=== PATIENT | male | born 1940 | race Caucasian/White ===

== ENCOUNTER → 2016-10-23 | Outpatient (CLI) | payer MEDICARE ==
[~2016-10-23] MED LIST: ASPI-515 PO; CEPH-376 PO; CHOL2000 PO; CINN500C2 PO; CIPR500T87 PO; DABI150C PO; FLUC200T4 PO; GABA300C10 PO; INSU100V8 SQ; METF500T4 PO; MULT-717 PO; TAMS-11 PO; TRAM-28 PO; Will bring list DOS
== END | disposition home or self-care (01) ==
LOC: RAD 12:28
PROVIDERS: ATTEND Internal Medicine
DX: J90 Pleural effusion, not elsewhere classified (principal); J98.11 Atelectasis
CPT/HCPCS: 71020; 71250

== ENCOUNTER → 2017-02-05 | Outpatient (CLI) | payer MEDICARE | END | disposition home or self-care (01) | LOC: WOUND 12:52 | PROVIDERS: ATTEND Physician Assistant | DX: E11.622 Type 2 diabetes mellitus with other skin ulcer (principal); L97.821 Non-pressure chronic ulcer of other part of left lower leg limited to breakdown of skin; E11.40 Type 2 diabetes mellitus with diabetic neuropathy, unspecified; I50.33 Acute on chronic diastolic (congestive) heart failure; I48.2 Chronic atrial fibrillation; Z85.53 Personal history of malignant neoplasm of renal pelvis; Z98.49 Cataract extraction status, unspecified eye; Z96.652 Presence of left artificial knee joint | CPT/HCPCS: 97597; G0463; WOU0463 ==

== ENCOUNTER → 2017-02-11 | Outpatient (CLI) | payer MEDICARE ==
[~2017-02-11] MED LIST changes: +REGADENOSON 0.4 MG/5 ML SYRINGE ONE
[2017-02-11 12:35] LABS: ASPARTATE AMINO TRANSFERASE 12 U/L (15-37); BLOOD UREA NITROGEN 25 mg/dL (7-18)
== END | disposition home or self-care (01) ==
LOC: CVU 09:31
PROVIDERS: ATTEND Internal Medicine Cardiovascular Disease
DX: I50.33 Acute on chronic diastolic (congestive) heart failure (principal); I48.2 Chronic atrial fibrillation; T81.30XA Disruption of wound, unspecified, initial encounter; R60.9 Edema, unspecified; I49.3 Ventricular premature depolarization
CPT/HCPCS: 36415; 78452; 80053; 80061; 83036; 84436; 84481; 85025; 93017; 93306; A9502; J2785

== ENCOUNTER → 2017-02-11 | Outpatient (CLI) | payer MEDICARE ==
[~2017-02-11] MED LIST changes: -REGADENOSON 0.4 MG/5 ML SYRINGE ONE
== END | disposition home or self-care (01) ==
LOC: WOUND 13:36
PROVIDERS: ATTEND Podiatrist Foot & Ankle Surgery
DX: E11.622 Type 2 diabetes mellitus with other skin ulcer (principal); L97.821 Non-pressure chronic ulcer of other part of left lower leg limited to breakdown of skin; E11.40 Type 2 diabetes mellitus with diabetic neuropathy, unspecified; G89.29 Other chronic pain; I48.2 Chronic atrial fibrillation; Z85.53 Personal history of malignant neoplasm of renal pelvis; I50.33 Acute on chronic diastolic (congestive) heart failure; Z96.652 Presence of left artificial knee joint
CPT/HCPCS: 97597

== ENCOUNTER → 2017-02-18 | Outpatient (CLI) | payer MEDICARE | END | disposition home or self-care (01) | LOC: WOUND 14:00 | PROVIDERS: ATTEND Podiatrist Foot & Ankle Surgery | DX: E11.621 Type 2 diabetes mellitus with foot ulcer (principal); L97.821 Non-pressure chronic ulcer of other part of left lower leg limited to breakdown of skin; E11.40 Type 2 diabetes mellitus with diabetic neuropathy, unspecified; I48.2 Chronic atrial fibrillation; I50.33 Acute on chronic diastolic (congestive) heart failure; Z98.49 Cataract extraction status, unspecified eye; Z85.53 Personal history of malignant neoplasm of renal pelvis; Z96.652 Presence of left artificial knee joint | CPT/HCPCS: 97597 ==

== ENCOUNTER → 2017-02-25 | Outpatient (CLI) | payer MEDICARE | END | disposition home or self-care (01) | LOC: WOUND 14:12 | PROVIDERS: ATTEND Podiatrist Foot & Ankle Surgery | DX: E11.622 Type 2 diabetes mellitus with other skin ulcer (principal); L97.821 Non-pressure chronic ulcer of other part of left lower leg limited to breakdown of skin; E11.40 Type 2 diabetes mellitus with diabetic neuropathy, unspecified; I48.2 Chronic atrial fibrillation; I50.33 Acute on chronic diastolic (congestive) heart failure; G89.29 Other chronic pain; Z96.652 Presence of left artificial knee joint; Z85.53 Personal history of malignant neoplasm of renal pelvis | CPT/HCPCS: 97597 ==

== ENCOUNTER → 2017-02-25 | Outpatient (CLI) | payer MEDICARE | END | disposition home or self-care (01) | LOC: CVU 11:34 | PROVIDERS: ATTEND Internal Medicine Cardiovascular Disease | DX: I70.203 Unspecified atherosclerosis of native arteries of extremities, bilateral legs (principal); I48.2 Chronic atrial fibrillation; I50.33 Acute on chronic diastolic (congestive) heart failure; T81.30XA Disruption of wound, unspecified, initial encounter; L97.329 Non-pressure chronic ulcer of left ankle with unspecified severity; E11.622 Type 2 diabetes mellitus with other skin ulcer; Z99.3 Dependence on wheelchair | CPT/HCPCS: 93922; 93925; 93970 ==

== ENCOUNTER → 2017-03-04 | Outpatient (CLI) | payer MEDICARE | END | disposition home or self-care (01) | LOC: WOUND 13:57 | PROVIDERS: ATTEND Podiatrist Foot & Ankle Surgery | DX: E11.622 Type 2 diabetes mellitus with other skin ulcer (principal); L97.821 Non-pressure chronic ulcer of other part of left lower leg limited to breakdown of skin; E11.40 Type 2 diabetes mellitus with diabetic neuropathy, unspecified; I48.2 Chronic atrial fibrillation; Z85.53 Personal history of malignant neoplasm of renal pelvis | CPT/HCPCS: 97597 ==

== ENCOUNTER → 2017-03-11 | Outpatient (CLI) | payer MEDICARE ==
[~2017-03-11] MED LIST changes: -TRAM-28 PO; +TRAM-47 PO
== END | disposition home or self-care (01) ==
LOC: WOUND 13:48
PROVIDERS: ATTEND Podiatrist Foot & Ankle Surgery
DX: E11.622 Type 2 diabetes mellitus with other skin ulcer (principal); L97.821 Non-pressure chronic ulcer of other part of left lower leg limited to breakdown of skin; I48.2 Chronic atrial fibrillation; E11.40 Type 2 diabetes mellitus with diabetic neuropathy, unspecified; Z85.53 Personal history of malignant neoplasm of renal pelvis; I50.33 Acute on chronic diastolic (congestive) heart failure; Z96.652 Presence of left artificial knee joint
CPT/HCPCS: G0463; WOU0463

== ENCOUNTER → 2017-03-18 | Outpatient (CLI) | payer MEDICARE | END | disposition home or self-care (01) | LOC: WOUND 15:30 | PROVIDERS: ATTEND Podiatrist Foot & Ankle Surgery | DX: E11.622 Type 2 diabetes mellitus with other skin ulcer (principal); L97.821 Non-pressure chronic ulcer of other part of left lower leg limited to breakdown of skin; E11.40 Type 2 diabetes mellitus with diabetic neuropathy, unspecified; I48.2 Chronic atrial fibrillation; I50.33 Acute on chronic diastolic (congestive) heart failure; Z85.53 Personal history of malignant neoplasm of renal pelvis; Z96.652 Presence of left artificial knee joint | CPT/HCPCS: 97597 ==

== ENCOUNTER → 2017-03-25 | Outpatient (CLI) | payer MEDICARE | END | disposition home or self-care (01) | LOC: WOUND 15:03 | PROVIDERS: ATTEND Podiatrist Foot & Ankle Surgery | DX: E11.622 Type 2 diabetes mellitus with other skin ulcer (principal); L97.821 Non-pressure chronic ulcer of other part of left lower leg limited to breakdown of skin; I48.2 Chronic atrial fibrillation; I50.33 Acute on chronic diastolic (congestive) heart failure; E11.40 Type 2 diabetes mellitus with diabetic neuropathy, unspecified; Z85.53 Personal history of malignant neoplasm of renal pelvis; Z96.652 Presence of left artificial knee joint | CPT/HCPCS: 97597 ==

== ENCOUNTER → 2017-04-01 | Outpatient (CLI) | payer MEDICARE | END | disposition home or self-care (01) | LOC: WOUND 15:00 | PROVIDERS: ATTEND Podiatrist Foot & Ankle Surgery | DX: E11.622 Type 2 diabetes mellitus with other skin ulcer (principal); L97.821 Non-pressure chronic ulcer of other part of left lower leg limited to breakdown of skin; I48.2 Chronic atrial fibrillation; E11.40 Type 2 diabetes mellitus with diabetic neuropathy, unspecified; Z85.53 Personal history of malignant neoplasm of renal pelvis; Z96.652 Presence of left artificial knee joint | CPT/HCPCS: 29581; 97597; 97598 ==

== ENCOUNTER → 2017-04-08 | Outpatient (CLI) | payer MEDICARE | END | disposition home or self-care (01) | LOC: WOUND 15:01 | PROVIDERS: ATTEND Podiatrist Foot & Ankle Surgery | DX: E11.622 Type 2 diabetes mellitus with other skin ulcer (principal); L97.821 Non-pressure chronic ulcer of other part of left lower leg limited to breakdown of skin; E11.40 Type 2 diabetes mellitus with diabetic neuropathy, unspecified; I48.2 Chronic atrial fibrillation; I50.33 Acute on chronic diastolic (congestive) heart failure; Z98.49 Cataract extraction status, unspecified eye; Z96.652 Presence of left artificial knee joint; Z85.53 Personal history of malignant neoplasm of renal pelvis | CPT/HCPCS: G0463; WOU0463 ==

== ENCOUNTER 2017-09-28 10:42 | Inpatient (IN) | payer MEDICARE ==
[~2017-09-28] VITALS: Ht 188 cm; Wt 105.3 kg
[2017-09-28] MEDS ORDERED: SODIUM CHLORIDE FLUSH 10ML SYR IVF ONE (12:00)
[2017-09-28] MEDS ORDERED: ALBUTEROL/IPRATROPIUM 2.5MG/0.5MG, 3 ML ONE (12:06)
[2017-09-28] MEDS ORDERED: FUROSEMIDE 100 MG/10 ML IV ONE (12:30)
[2017-09-28] MEDS ORDERED: methylPREDNISolone SOD SUCC 125 MG/2 ML ONE (12:47)
[2017-09-28] MEDS ORDERED: methylPREDNISolone SOD SUCC 125 MG/2 ML IVPush ONE (13:00)
[2017-09-28] MEDS ORDERED: FUROSEMIDE 40 MG/4 ML ONE ×2 (13:02→13:09)
[2017-09-28 13:11] LABS: BASOPHILS # (AUTO) 0.03 x10^3/uL (0-0.1); BASOPHILS % (AUTO) 0 % (0-1); EOSINOPHILS % (AUTO) 0 % (1-7); LYMPHOCYTES # (AUTO) 0.39 x10^3/uL (1-3.4); LYMPHOCYTES % (AUTO) 4 % (22-44); MD NO; MEAN CORPUSCULAR HEMOGLOBIN 26.1 pg (27.5-34.5); MEAN CORPUSCULAR HGB CONC 32.5 g/dL (33.2-36.2); MEAN CORPUSCULAR VOLUME 80.3 fL (81-97); MEAN PLATELET VOLUME 10.6 fL (7.4-10.4); MONOCYTES # (AUTO) 0.55 x10^3/uL (0.2-0.8); MONOCYTES % (AUTO) 6 % (2-9); NEUTROPHILS # (AUTO) 8.44 x10^3/uL (1.8-6.8); NEUTROPHILS % (AUTO) 90 % (42-75); PLATELET COUNT 111 x10^3/uL (130-400); RED BLOOD COUNT 5.99 x10^6/uL (4.38-5.82); RED CELL DISTRIBUTION WIDTH 15.4 % (9.4-14.8)
[2017-09-28 13:20] LABS: ALANINE AMINOTRANSFERASE 47 U/L (12-78); ANION GAP 6 mmol/L (5-15); CALCIUM 9.7 mg/dL (8.5-10.1); CHLORIDE 103 mmol/L (98-107); CREATININE 1.07 mg/dL (0.7-1.3)
[2017-09-28 13:22] LABS: FIO2 50 %
[2017-09-28 13:24] LABS: ALKALINE PHOSPHATASE 145 U/L (45-117); BILIRUBIN,TOTAL 0.9 mg/dL (0.2-1.0); TOTAL PROTEIN 7.8 g/dL (6.4-8.2); TROPONIN I < 0.015 ng/mL (0.000-0.045)
[2017-09-28] MEDS ORDERED: FINA5TAB4 PO (14:17)
[2017-09-28] MEDS ORDERED: TAMS0.4C2 PO ×2 (14:17→14:36)
[2017-09-28] MEDS ORDERED: POTA20TA14 PO (14:17)
[2017-09-28] MEDS ORDERED: FURO20TA3 PO (14:17)
[2017-09-28] MEDS ORDERED: CHOL20002 PO (14:17)
[2017-09-28] MEDS ORDERED: PYRI100T2 PO (14:17)
[2017-09-28] MEDS ORDERED: GABA300C10 PO (14:17)
[2017-09-28] MEDS ORDERED: METH750T2 PO (14:17)
[2017-09-28] MEDS ORDERED: ASPI-496 PO (14:17)
[2017-09-28] MEDS ORDERED: POLYETHYLENE GLYCOL 17 GM PACKET PO PRN (16:00)
[2017-09-28] MEDS ORDERED: hydrALAzine 20 MG/ML, 1ML IVPush PRN (16:00)
[2017-09-28] MEDS ORDERED: BISACODYL 10 MG SUPP PR PRN (16:00)
[2017-09-28] MEDS ORDERED: DOCUSATE 100 MG CAPSULE PO PRN (16:00)
[2017-09-28] MEDS ORDERED: methylPREDNISolone SOD SUCC 125 MG/2 ML IVPush SCH (16:30)
[2017-09-28] MEDS: METHOCARBAMOL 750 MG TABLET PO SCH (16:30)
[2017-09-28] MEDS: HEPARIN 5,000 UNITS/ML, 1ML SQ SCH (17:00)
[2017-09-28] MEDS: methylPREDNISolone SOD SUCC 125 MG/2 ML IVPush SCH (17:10)
[2017-09-28] MEDS: INSULIN LISPRO 100 UNITS/ML, PEN SQ-INSULIN SCH ×2 (17:10→21:15)
[2017-09-28] MEDS ORDERED: HALOPERIDOL 5 MG/ML ONE (18:48)
[2017-09-28] MEDS ORDERED: HALOPERIDOL 5 MG/ML IV ONE ×2 (19:00→22:30)
[2017-09-28 19:22] LABS: RAPID INFLUENZA A Negative (Negative); RAPID INFLUENZA B Negative (Negative)
[2017-09-28] MEDS: GABAPENTIN 300 MG CAPSULE PO SCH (21:00)
[2017-09-28] MEDS: TAMSULOSIN 0.4 MG CAP.ER.24H PO SCH (21:00)
[2017-09-28] MEDS: INSULIN GLARGINE 100 UNITS/ML, PEN SQ-INSULIN SCH (21:15)
[2017-09-28] MEDS: QUETIAPINE 25MG TABLET PO SCH (22:22)
[2017-09-28] MEDS: LORazepam 2 MG/ML, 1ML IVPush PRN (22:23)
[2017-09-29] MEDS: METHOCARBAMOL 750 MG TABLET PO SCH ×3 (00:30→16:30)
[2017-09-29] MEDS: methylPREDNISolone SOD SUCC 125 MG/2 ML IVPush SCH ×4 (01:06→18:52)
[2017-09-29] MEDS: HEPARIN 5,000 UNITS/ML, 1ML SQ SCH ×3 (01:06→16:30)
[2017-09-29 04:00] VITALS: BP_SYST 105; BP_SYST 131; BP_DIAS 68; BP_DIAS 71
[2017-09-29 04:13] LABS: MEAN CORPUSCULAR HEMOGLOBIN 26.4 pg (27.5-34.5); MEAN CORPUSCULAR HGB CONC 32.7 g/dL (33.2-36.2); MEAN CORPUSCULAR VOLUME 80.6 fL (81-97); MEAN PLATELET VOLUME 9.5 fL (7.4-10.4); PLATELET COUNT 110 x10^3/uL (130-400); RED BLOOD COUNT 5.56 x10^6/uL (4.38-5.82); RED CELL DISTRIBUTION WIDTH 15.9 % (9.4-14.8)
[2017-09-29 04:25] LABS: ALBUMIN 3.2 g/dL (3.4-5.0); ANION GAP 5 mmol/L (5-15); CALCIUM 9.3 mg/dL (8.5-10.1); CHLORIDE 103 mmol/L (98-107)
[2017-09-29 04:29] LABS: ALANINE AMINOTRANSFERASE 41 U/L (12-78); ALKALINE PHOSPHATASE 122 U/L (45-117); BILIRUBIN,TOTAL 0.8 mg/dL (0.2-1.0); CREATININE 0.83 mg/dL (0.7-1.3); TOTAL PROTEIN 6.4 g/dL (6.4-8.2)
[2017-09-29 05:05] LABS: BASOPHILS # (AUTO) 0.07 x10^3/uL (0-0.1); BASOPHILS % (AUTO) 1 % (0-1); EOSINOPHILS % (AUTO) 0 % (1-7); LYMPHOCYTES # (AUTO) 0.34 x10^3/uL (1-3.4); LYMPHOCYTES % (AUTO) 4 % (22-44); MD SCAN; MONOCYTES # (AUTO) 0.12 x10^3/uL (0.2-0.8); MONOCYTES % (AUTO) 1 % (2-9); NEUTROPHILS # (AUTO) 8.66 x10^3/uL (1.8-6.8); NEUTROPHILS % (AUTO) 94 % (42-75)
[2017-09-29] MEDS: QUETIAPINE 25MG TABLET PO SCH ×3 (05:29→22:19)
[2017-09-29] MEDS: INSULIN LISPRO 100 UNITS/ML, PEN SQ-INSULIN SCH ×4 (06:22→22:19)
[2017-09-29] MEDS: ASPIRIN 81 MG TABLET EC PO SCH (09:00)
[2017-09-29] MEDS: CHOLECALCIFEROL 1,000 UNIT TABLET PO SCH (09:00)
[2017-09-29] MEDS: GABAPENTIN 300 MG CAPSULE PO SCH ×2 (09:00→12:52)
[2017-09-29] MEDS: FINASTERIDE 5 MG TABLET PO SCH (09:00)
[2017-09-29] MEDS: PYRIDOXINE 50MG TABLET PO SCH (09:00)
[2017-09-29] MEDS: TAMSULOSIN 0.4 MG CAP.ER.24H PO SCH ×2 (09:00→22:19)
[2017-09-29] MEDS: PANTOPRAZOLE 40 MG IV IVPush SCH (10:36)
[2017-09-29 12:03] LABS: AMPHETAMINE SCREEN, URINE Negative (Negative); BARBITURATE SCREEN, URINE Negative (Negative); BENZODIAZEPINE SCREEN, URINE Negative (Negative); CANNABINOID SCREEN, URINE Negative (Negative); COCAINE SCREEN, URINE Negative (Negative); METHADONE SCREEN, URINE Negative (Negative); OPIATE SCREEN, URINE Negative (Negative)
[2017-09-29] MEDS ORDERED: HALOPERIDOL 5 MG/ML IV ONE ×2 (15:30→17:30)
[2017-09-29] MEDS: INSULIN GLARGINE 100 UNITS/ML, PEN SQ-INSULIN SCH (22:19)
[2017-09-30] MEDS: HEPARIN 5,000 UNITS/ML, 1ML SQ SCH ×3 (01:20→16:36)
[2017-09-30] MEDS: methylPREDNISolone SOD SUCC 125 MG/2 ML IVPush SCH ×4 (01:20→18:24)
[2017-09-30] MEDS: METHOCARBAMOL 750 MG TABLET PO SCH ×3 (01:20→16:30)
[2017-09-30 04:00] VITALS: BP 132/68
[2017-09-30 04:32] LABS: MEAN CORPUSCULAR HEMOGLOBIN 26.4 pg (27.5-34.5); MEAN CORPUSCULAR HGB CONC 32.9 g/dL (33.2-36.2); MEAN CORPUSCULAR VOLUME 80.2 fL (81-97); MEAN PLATELET VOLUME 9.2 fL (7.4-10.4); PLATELET COUNT 126 x10^3/uL (130-400); RED BLOOD COUNT 6.08 x10^6/uL (4.38-5.82); RED CELL DISTRIBUTION WIDTH 15.9 % (9.4-14.8)
[2017-09-30 04:36] LABS: ALANINE AMINOTRANSFERASE 39 U/L (12-78); ALBUMIN 3.4 g/dL (3.4-5.0); ANION GAP 5 mmol/L (5-15); CALCIUM 9.7 mg/dL (8.5-10.1); CHLORIDE 104 mmol/L (98-107); CREATININE 0.85 mg/dL (0.7-1.3)
[2017-09-30 05:02] LABS: ALKALINE PHOSPHATASE 119 U/L (45-117); BILIRUBIN,TOTAL 1.3 mg/dL (0.2-1.0); TOTAL PROTEIN 6.8 g/dL (6.4-8.2)
[2017-09-30 05:17] LABS: BASOPHILS % (AUTO) 0 % (0-1); EOSINOPHILS % (AUTO) 0 % (1-7); LYMPHOCYTES # (AUTO) 0.71 x10^3/uL (1-3.4); LYMPHOCYTES % (AUTO) 6 % (22-44); MD SCAN; MONOCYTES # (AUTO) 0.26 x10^3/uL (0.2-0.8); MONOCYTES % (AUTO) 2 % (2-9); NEUTROPHILS # (AUTO) 11.56 x10^3/uL (1.8-6.8); NEUTROPHILS % (AUTO) 92 % (42-75)
[2017-09-30] MEDS: PANTOPRAZOLE 40 MG IV IVPush SCH (06:12)
[2017-09-30] MEDS: INSULIN LISPRO 100 UNITS/ML, PEN SQ-INSULIN SCH ×4 (06:13→21:56)
[2017-09-30] MEDS: QUETIAPINE 25MG TABLET PO SCH ×3 (06:14→21:56)
[2017-09-30] MEDS: ASPIRIN 81 MG TABLET EC PO SCH (09:28)
[2017-09-30] MEDS: FINASTERIDE 5 MG TABLET PO SCH (09:28)
[2017-09-30] MEDS: CHOLECALCIFEROL 1,000 UNIT TABLET PO SCH (09:28)
[2017-09-30] MEDS: GABAPENTIN 300 MG CAPSULE PO SCH ×2 (09:28→21:56)
[2017-09-30] MEDS: PYRIDOXINE 50MG TABLET PO SCH (09:30)
[2017-09-30] MEDS: TAMSULOSIN 0.4 MG CAP.ER.24H PO SCH ×2 (09:30→21:56)
[2017-09-30] MEDS: PIPERACILLIN/TAZO/PMX 3.375GM 50 ML IV SCH ×2 (11:18→17:00)
[2017-09-30] MEDS ORDERED: LIDOCAINE 1%, 20ML ONE (12:03)
[2017-09-30 13:02] LABS: ALBUMIN 3.1 g/dL (3.4-5.0)
[2017-09-30 13:03] LABS: TOTAL PROTEIN 6.2 g/dL (6.4-8.2)
[2017-09-30 20:11] VITALS: BP 163/96
[2017-09-30] MEDS: INSULIN GLARGINE 100 UNITS/ML, PEN SQ-INSULIN SCH (21:00)
[2017-10-01 00:26] VITALS: BP 180/89
[2017-10-01] MEDS: PIPERACILLIN/TAZO/PMX 3.375GM 50 ML IV SCH ×4 (01:39→18:05)
[2017-10-01] MEDS: HEPARIN 5,000 UNITS/ML, 1ML SQ SCH ×3 (02:42→18:05)
[2017-10-01] MEDS: methylPREDNISolone SOD SUCC 125 MG/2 ML IVPush SCH ×2 (02:42→09:00)
[2017-10-01] MEDS: METHOCARBAMOL 750 MG TABLET PO SCH ×3 (02:43→18:05)
[2017-10-01] MEDS: QUETIAPINE 25MG TABLET PO SCH ×3 (06:13→21:11)
[2017-10-01 07:56] VITALS: BP 150/75
[2017-10-01 07:59] LABS: BASOPHILS # (AUTO) 0.25 x10^3/uL (0-0.1); BASOPHILS % (AUTO) 2 % (0-1); EOSINOPHILS % (AUTO) 0 % (1-7); LYMPHOCYTES # (AUTO) 0.34 x10^3/uL (1-3.4); LYMPHOCYTES % (AUTO) 3 % (22-44); MD NO; MEAN CORPUSCULAR HEMOGLOBIN 25.9 pg (27.5-34.5); MEAN CORPUSCULAR HGB CONC 32.4 g/dL (33.2-36.2); MEAN CORPUSCULAR VOLUME 80.2 fL (81-97); MONOCYTES # (AUTO) 0.42 x10^3/uL (0.2-0.8); MONOCYTES % (AUTO) 4 % (2-9); NEUTROPHILS % (AUTO) 90 % (42-75); PLATELET COUNT 119 x10^3/uL (130-400); RED BLOOD COUNT 6.02 x10^6/uL (4.38-5.82); RED CELL DISTRIBUTION WIDTH 15.4 % (9.4-14.8)
[2017-10-01 08:10] LABS: ALANINE AMINOTRANSFERASE 39 U/L (12-78); ANION GAP 4 mmol/L (5-15); CALCIUM 9.2 mg/dL (8.5-10.1); CHLORIDE 103 mmol/L (98-107); CREATININE 0.89 mg/dL (0.7-1.3)
[2017-10-01 08:12] LABS: ALKALINE PHOSPHATASE 103 U/L (45-117); BILIRUBIN,TOTAL 1.5 mg/dL (0.2-1.0); TOTAL PROTEIN 6.2 g/dL (6.4-8.2)
[2017-10-01] MEDS: GABAPENTIN 300 MG CAPSULE PO SCH ×2 (09:00→21:11)
[2017-10-01] MEDS: FINASTERIDE 5 MG TABLET PO SCH (09:00)
[2017-10-01] MEDS: TAMSULOSIN 0.4 MG CAP.ER.24H PO SCH ×2 (10:00→21:11)
[2017-10-01] MEDS: PYRIDOXINE 50MG TABLET PO SCH (10:00)
[2017-10-01] MEDS: ASPIRIN 81 MG TABLET EC PO SCH (10:00)
[2017-10-01] MEDS: CHOLECALCIFEROL 1,000 UNIT TABLET PO SCH (10:00)
[2017-10-01] MEDS: PANTOPRAZOLE 40 MG IV IVPush SCH (10:01)
[2017-10-01] MEDS: INSULIN LISPRO 100 UNITS/ML, PEN SQ-INSULIN SCH ×4 (10:02→21:12)
[2017-10-01] MEDS: ACETAMINOPHEN 325 MG TABLET PO PRN (11:51)
[2017-10-01] MEDS ORDERED: ONDANSETRON 2MG/ML, 2ML ONE (13:45)
[2017-10-01] MEDS ORDERED: ONDANSETRON 2MG/ML, 2ML IVPush ONE (14:00)
[2017-10-01 14:06] VITALS: BP 135/79
[2017-10-01] MEDS: methylPREDNISolone SOD SUCC 40 MG/ML IVPush SCH (18:05)
[2017-10-01 19:50] VITALS: BP 155/83
[2017-10-01] MEDS ORDERED: INSULIN GLARGINE 100 UNITS/ML, PEN SQ-INSULIN SCH (21:00)
[2017-10-02 00:20] VITALS: BP 174/104
[2017-10-02] MEDS: methylPREDNISolone SOD SUCC 40 MG/ML IVPush SCH ×3 (01:44→17:44)
[2017-10-02] MEDS: PIPERACILLIN/TAZO/PMX 3.375GM 50 ML IV SCH ×4 (01:45→23:50)
[2017-10-02] MEDS: HEPARIN 5,000 UNITS/ML, 1ML SQ SCH ×3 (01:45→17:44)
[2017-10-02] MEDS: METHOCARBAMOL 750 MG TABLET PO SCH ×3 (01:45→17:44)
[2017-10-02] MEDS: QUETIAPINE 25MG TABLET PO SCH ×3 (05:42→21:34)
[2017-10-02 05:46] VITALS: BP 167/91
[2017-10-02 06:00] LABS: MEAN CORPUSCULAR HEMOGLOBIN 26.1 pg (27.5-34.5); MEAN CORPUSCULAR HGB CONC 32.5 g/dL (33.2-36.2); MEAN CORPUSCULAR VOLUME 80.4 fL (81-97); MEAN PLATELET VOLUME 9.3 fL (7.4-10.4); PLATELET COUNT 111 x10^3/uL (130-400); RED BLOOD COUNT 6.11 x10^6/uL (4.38-5.82)
[2017-10-02 06:15] LABS: ANION GAP 4 mmol/L (5-15); CHLORIDE 105 mmol/L (98-107)
[2017-10-02 06:16] LABS: CALCIUM 9.5 mg/dL (8.5-10.1); CREATININE 0.85 mg/dL (0.7-1.3)
[2017-10-02 06:47] LABS: MD YES
[2017-10-02 07:02] LABS: MONOS#(MANUAL) 0.21 x10^3/uL (0.3-2.7); MONOS% (MANUAL) 2 % (2-9); SEG#(MANUAL) 10.19 x10^3/uL (1.8-6.8); SEGS% (MANUAL) 98 % (42-75)
[2017-10-02 07:03] LABS: <PLATELET ESTIMATE> ADEQUATE; <PLT MORPHOLOGY> NORMAL PLT MORPH; ANISOCYTOSIS 1+; MICROCYTOSIS 1+
[2017-10-02 07:42] VITALS: BP 162/89
[2017-10-02] MEDS ORDERED: FUROSEMIDE 40 MG/4 ML IV ONE ×3 (08:30→21:30)
[2017-10-02] MEDS: PYRIDOXINE 50MG TABLET PO SCH (08:50)
[2017-10-02] MEDS: FINASTERIDE 5 MG TABLET PO SCH (08:50)
[2017-10-02] MEDS: INSULIN LISPRO 100 UNITS/ML, PEN SQ-INSULIN SCH ×4 (08:51→21:35)
[2017-10-02] MEDS: GABAPENTIN 300 MG CAPSULE PO SCH ×2 (08:52→21:33)
[2017-10-02] MEDS: CHOLECALCIFEROL 1,000 UNIT TABLET PO SCH (08:52)
[2017-10-02] MEDS: ASPIRIN 81 MG TABLET EC PO SCH (08:52)
[2017-10-02] MEDS: TAMSULOSIN 0.4 MG CAP.ER.24H PO SCH ×2 (08:52→21:34)
[2017-10-02 13:31] VITALS: BP 147/81
[2017-10-02] MEDS: ACETAMINOPHEN 325 MG TABLET PO PRN (14:36)
[2017-10-02] MEDS ORDERED: ALBUTEROL SULFATE 2.5 MG/3 ML ONE (16:30)
[2017-10-02] MEDS ORDERED: ALBUTEROL/IPRATROPIUM 2.5MG/0.5MG, 3 ML NEB ONE (16:30)
[2017-10-02 17:25] LABS: TROPONIN I < 0.015 ng/mL (0.000-0.045)
[2017-10-02 19:05] VITALS: BP 153/84
[2017-10-02] MEDS: INSULIN GLARGINE 100 UNITS/ML, PEN SQ-INSULIN SCH (21:34)
[2017-10-03 03:33] VITALS: BP 142/76
[2017-10-03] MEDS: HEPARIN 5,000 UNITS/ML, 1ML SQ SCH ×3 (03:43→18:19)
[2017-10-03] MEDS: METHOCARBAMOL 750 MG TABLET PO SCH ×3 (03:44→18:19)
[2017-10-03] MEDS: methylPREDNISolone SOD SUCC 40 MG/ML IVPush SCH ×3 (03:44→18:19)
[2017-10-03 05:45] LABS: MEAN CORPUSCULAR HEMOGLOBIN 26.1 pg (27.5-34.5); MEAN CORPUSCULAR HGB CONC 32.6 g/dL (33.2-36.2); MEAN CORPUSCULAR VOLUME 79.9 fL (81-97); MEAN PLATELET VOLUME 9.6 fL (7.4-10.4); PLATELET COUNT 111 x10^3/uL (130-400); RED BLOOD COUNT 6.29 x10^6/uL (4.38-5.82)
[2017-10-03 05:54] LABS: ANION GAP 4 mmol/L (5-15); CALCIUM 9.3 mg/dL (8.5-10.1); CHLORIDE 99 mmol/L (98-107); CREATININE 0.94 mg/dL (0.7-1.3)
[2017-10-03] MEDS: QUETIAPINE 25MG TABLET PO SCH ×3 (06:11→21:00)
[2017-10-03] MEDS: PIPERACILLIN/TAZO/PMX 3.375GM 50 ML IV SCH ×3 (06:11→17:34)
[2017-10-03 06:14] LABS: MD YES
[2017-10-03 06:31] LABS: LYMPH#(MANUAL) 0.44 x10^3/uL (1-3.4); LYMPHS% (MANUAL) 4 % (22-44); MONOS#(MANUAL) 0.22 x10^3/uL (0.3-2.7); MONOS% (MANUAL) 2 % (2-9); SEG#(MANUAL) 10.25 x10^3/uL (1.8-6.8); SEGS% (MANUAL) 94 % (42-75)
[2017-10-03 06:32] LABS: <PLATELET ESTIMATE> DECREASED; <PLT MORPHOLOGY> NORMAL PLT MORPH; ANISOCYTOSIS 1+; MICROCYTOSIS 1+
[2017-10-03] MEDS: INSULIN LISPRO 100 UNITS/ML, PEN SQ-INSULIN SCH ×4 (07:00→21:01)
[2017-10-03] MEDS ORDERED: PANTOPROZOLE 40MG TABLET PO SCH (07:30)
[2017-10-03 07:43] VITALS: BP 122/81
[2017-10-03] MEDS: ASPIRIN 81 MG TABLET EC PO SCH (08:32)
[2017-10-03] MEDS: TAMSULOSIN 0.4 MG CAP.ER.24H PO SCH ×2 (08:32→21:00)
[2017-10-03] MEDS: GABAPENTIN 300 MG CAPSULE PO SCH ×2 (08:33→21:00)
[2017-10-03] MEDS: FINASTERIDE 5 MG TABLET PO SCH (08:33)
[2017-10-03] MEDS: PYRIDOXINE 50MG TABLET PO SCH (08:33)
[2017-10-03] MEDS: CHOLECALCIFEROL 1,000 UNIT TABLET PO SCH (08:34)
[2017-10-03 13:21] VITALS: BP 146/77
[2017-10-03] MEDS: LORazepam 2 MG/ML, 1ML IVPush PRN (15:16)
[2017-10-03] MEDS ORDERED: FUROSEMIDE 40 MG/4 ML IV SCH (17:00)
[2017-10-03 20:00] VITALS: BP 130/80
[2017-10-03] MEDS: INSULIN GLARGINE 100 UNITS/ML, PEN SQ-INSULIN SCH (21:01)
[2017-10-03] MEDS ORDERED: LORazepam 2 MG/ML, 1ML IVPush PRN (23:30)
[2017-10-04] MEDS ORDERED: LORazepam 2 MG/ML, 1ML IVPush PRN (00:30)
[2017-10-04] MEDS: MORPHINE SULFATE 4 MG/ML, 1ML IVPush PRN ×2 (01:25→04:59)
[2017-10-04] MEDS: methylPREDNISolone SOD SUCC 40 MG/ML IVPush SCH (02:00)
[2017-10-04] MEDS: METHOCARBAMOL 750 MG TABLET PO SCH (02:00)
[2017-10-04] MEDS: HEPARIN 5,000 UNITS/ML, 1ML SQ SCH (02:00)
[2017-10-04] MEDS: PIPERACILLIN/TAZO/PMX 3.375GM 50 ML IV SCH ×2 (06:00)
[2017-10-04] MEDS: QUETIAPINE 25MG TABLET PO SCH (06:25)
== END 2017-10-04 16:00 | disposition expired | DRG 291 ==
LOC: ED 14:04 → CCU 14:05 → ED 14:57 → CCU 09-30 01:49 → 4EST 09-30 17:05
PROVIDERS: ADMIT Hospitalist; ATTEND Hospitalist
PROC: 5A09357 Assistance with Respiratory Ventilation, Less than 24 Consecutive Hours, Continuous Positive Airway Pressure (ICD-10-PCS; principal; 2017-09-28)
PROC: 0W9B3ZZ Drainage of Left Pleural Cavity, Percutaneous Approach (ICD-10-PCS; 2017-09-30)
DX: I50.31 Acute diastolic (congestive) heart failure (principal); J96.01 Acute respiratory failure with hypoxia; G93.40 Encephalopathy, unspecified; E87.4 Mixed disorder of acid-base balance; J96.02 Acute respiratory failure with hypercapnia; J90 Pleural effusion, not elsewhere classified; J81.1 Chronic pulmonary edema; J98.11 Atelectasis; I27.20 Pulmonary hypertension, unspecified; N40.1 Benign prostatic hyperplasia with lower urinary tract symptoms; R33.8 Other retention of urine; Z96.652 Presence of left artificial knee joint; I48.91 Unspecified atrial fibrillation; E11.9 Type 2 diabetes mellitus without complications; Z85.51 Personal history of malignant neoplasm of bladder; Z87.891 Personal history of nicotine dependence; Z90.49 Acquired absence of other specified parts of digestive tract; Z79.4 Long term (current) use of insulin; Z98.2 Presence of cerebrospinal fluid drainage device; Z79.82 Long term (current) use of aspirin; Z80.9 Family history of malignant neoplasm, unspecified; Z51.5 Encounter for palliative care
CPT/HCPCS: 32555; 36415; 36600; 70450; 71045; 80048; 80053; 80307; 82040; 82140; 82150; 82607; 82803; 82945; 82947; 82962; 83605; 83615; 83735; 83880; 83986; 84100; 84155; 84157; 84484; 85025; 85730; 87040; 87070; 87075; 87081; 87102; 87116; 87205; 87206; 87400; 88112; 88305; 89051; 93005; 93306; 93970; 94640; 94660; 96374; 96375; J1644; J1940; J2405; J2543; J3490; C9113; J1630; J1815; J2060; J2920; J2930